=== PATIENT | male | born 1960 | race Caucasian/White ===

== ENCOUNTER 2021-05-24 09:24 | Emergency (ER) | payer OTHER ==
[~2021-05-24] VITALS: Ht 182.9 cm; Wt 95.3 kg
[2021-05-24] MEDS ORDERED: AMLODIPINE BESYL5 MG PO (23:41)
[2021-05-24] MEDS ORDERED: FINASTERIDE5 MG PO (23:41)
[2021-05-24] MEDS ORDERED: SIMVASTATIN20 MG PO (23:41)
[2021-05-24] MEDS ORDERED: FLOMAX0.4 MG PO (23:41)
== END 2021-05-24 12:31 | disposition home or self-care (01) ==
LOC: ER 09:30
DX: R31.9 Hematuria, unspecified (principal); Z98.890 Other specified postprocedural states; I10 Essential (primary) hypertension
CPT/HCPCS: 99282

== ENCOUNTER 2021-05-24 17:00 | Inpatient (IN) | payer OTHER ==
[~2021-05-24] VITALS: Ht 182.9 cm; Wt 95.3 kg
[2021-05-24] MEDS: SODIUM CHLORIDE 0.9% 1000ML 1,000 ML IV SCH (18:14)
[2021-05-24] MEDS: CEFTRIAXONE 1 GM in SODIUM CHLORIDE 0.9% 50ML 50 ML IV SCH (18:14)
[2021-05-24 18:15] LABS: BASOPHILS % 0.2 % (0.0-1.0); EOSINOPHILS # (AUTO) 0.2 (0.0-0.4); EOSINOPHILS % 1.7 % (0.0-6.0); HEMATOCRIT 37.7 % (38.2-49.6); HEMOGLOBIN 12.7 g/dL (14.0-18.0); LYMPHOCYTES # (AUTO) 1.2 (1.0-3.2); LYMPHOCYTES % 13.1 % (18.0-39.1); MEAN CORPUSCULAR HEMOGLOBIN 28.5 pg (28-32); MEAN CORPUSCULAR HGB CONC 33.7 g/dL (31-35); MEAN CORPUSCULAR VOLUME 84.7 fL (81-99); MONOCYTES # (AUTO) 0.8 (0.2-0.8); NEUTROPHILS # (AUTO) 6.7 (2.1-6.9); NEUTROPHILS % 75.4 % (38.7-80.0); PLATELET COUNT 242 x10e3/uL (140-360); RED BLOOD COUNT 4.45 x10e6/uL (4.3-5.7); RED CELL DISTRIBUTION WIDTH 13.2 % (11.7-14.4)
[2021-05-24] MEDS ORDERED: LIDOCAINE JELLY 2% 10ML URO-JET ONE (18:28)
[2021-05-24 18:29] LABS: ANION GAP 14.7 mmol/L (8-16); CALCIUM 8.7 mg/dL (8.4-10.2); CREATININE, SERUM 0.83 mg/dL (0.72-1.25); POTASSIUM 3.7 mmol/L (3.5-5.1)
[2021-05-24] MEDS ORDERED: LIDOCAINE JELLY 2% 10ML URO-JET TOP ONE (18:30)
[2021-05-24 20:00] VITALS: BP 136/80
[2021-05-24 23:26] VITALS: BP 136/80
[2021-05-24 23:31] VITALS: BP 136/76
[2021-05-24] MEDS ORDERED: AMLODIPINE BESYL5 MG PO (23:41)
[2021-05-24] MEDS ORDERED: FLOMAX0.4 MG PO (23:41)
[2021-05-24] MEDS ORDERED: FINASTERIDE5 MG PO (23:41)
[2021-05-24] MEDS ORDERED: SIMVASTATIN20 MG PO (23:41)
[2021-05-25] VITALS (8 sets, daily range): BP systolic 117–162; BP diastolic 71–89
[2021-05-25] MEDS: SODIUM CHLORIDE 0.9% 1000ML 1,000 ML IV SCH (02:31)
[2021-05-25] MEDS: MORPHINE SULFATE INJ 4 MG/ML INJ 1ML IV PRN ×3 (04:08→23:00)
[2021-05-25 04:58] LABS: BASOPHILS % 0.1 % (0.0-1.0); EOSINOPHILS # (AUTO) 0.2 (0.0-0.4); EOSINOPHILS % 2.9 % (0.0-6.0); HEMATOCRIT 34.6 % (38.2-49.6); HEMOGLOBIN 11.8 g/dL (14.0-18.0); LYMPHOCYTES # (AUTO) 1.2 (1.0-3.2); LYMPHOCYTES % 15.4 % (18.0-39.1); MEAN CORPUSCULAR HEMOGLOBIN 28.8 pg (28-32); MEAN CORPUSCULAR HGB CONC 34.1 g/dL (31-35); MEAN CORPUSCULAR VOLUME 84.4 fL (81-99); MONOCYTES # (AUTO) 0.8 (0.2-0.8); MONOCYTES % 10.4 % (4.4-11.3); NEUTROPHILS # (AUTO) 5.4 (2.1-6.9); NEUTROPHILS % 70.7 % (38.7-80.0); PLATELET COUNT 229 x10e3/uL (140-360); RED CELL DISTRIBUTION WIDTH 13.4 % (11.7-14.4)
[2021-05-25 05:53] LABS: ANION GAP 11.5 mmol/L (8-16); CALCIUM 8.1 mg/dL (8.4-10.2); CREATININE, SERUM 0.73 mg/dL (0.72-1.25); POTASSIUM 3.5 mmol/L (3.5-5.1)
[2021-05-25] MEDS ORDERED: KCL 20MEQ/.9 SOD CHL 1,000 ML IV SCH (10:00)
[2021-05-25] MEDS: ONDANSETRON HCL INJ 2MG/ML 2ML 2 MG/ML VIAL IV PRN ×2 (10:06→23:00)
[2021-05-25] MEDS: KCL 20MEQ/.9 SOD CHL 1,000 ML IV SCH ×2 (10:34→18:33)
[2021-05-25] MEDS ORDERED: ACETAMINOPHEN 325 MG TAB PO PRN (15:00)
[2021-05-25] MEDS ORDERED: HYDRALAZINE HCL 20 MG/ML VIAL IV PRN (15:00)
[2021-05-25] MEDS ORDERED: POLYETHYLENE GLYCOL 3350 17 GM PACK PO PRN (15:00)
[2021-05-25] MEDS: FAMOTIDINE 20 MG TAB PO SCH (16:01)
[2021-05-25] MEDS: TAMSULOSIN HCL 0.4 MG CAP PO SCH (16:01)
[2021-05-25] MEDS: DOCUSATE SODIUM 100 MG CAP PO SCH (16:01)
[2021-05-25] MEDS: TIZANIDINE HCL 4 MG TAB PO SCH (16:01)
[2021-05-25] MEDS: LIDOCAINE 4% PATCH TP SCH (16:23)
[2021-05-25] MEDS: CEFTRIAXONE 1 GM in SODIUM CHLORIDE 0.9% 50ML 50 ML IV SCH (17:48)
[2021-05-25] MEDS ORDERED: SODIUM CHLORIDE 0.9% 1000ML 1,000 ML ONE (20:12)
[2021-05-25] MEDS ORDERED: TEMAZEPAM 15 MG CAP PO PRN (21:00)
[2021-05-26] VITALS (8 sets, daily range): BP systolic 109–161; BP diastolic 63–99
[2021-05-26] MEDS: SODIUM CHLORIDE 0.9% 1000ML 1,000 ML IV SCH ×3 (02:38→19:24)
[2021-05-26] MEDS: MORPHINE SULFATE INJ 4 MG/ML INJ 1ML IV PRN ×4 (03:11→23:30)
[2021-05-26] MEDS: ONDANSETRON HCL INJ 2MG/ML 2ML 2 MG/ML VIAL IV PRN ×4 (03:11→23:30)
[2021-05-26 05:31] LABS: BASOPHILS % 0.2 % (0.0-1.0); EOSINOPHILS # (AUTO) 0.1 (0.0-0.4); EOSINOPHILS % 1.1 % (0.0-6.0); HEMATOCRIT 37.8 % (38.2-49.6); HEMOGLOBIN 12.5 g/dL (14.0-18.0); LYMPHOCYTES # (AUTO) 1.1 (1.0-3.2); LYMPHOCYTES % 9.6 % (18.0-39.1); MEAN CORPUSCULAR HEMOGLOBIN 28.3 pg (28-32); MEAN CORPUSCULAR HGB CONC 33.1 g/dL (31-35); MEAN CORPUSCULAR VOLUME 85.5 fL (81-99); MONOCYTES # (AUTO) 1.1 (0.2-0.8); NEUTROPHILS # (AUTO) 9.3 (2.1-6.9); NEUTROPHILS % 79.5 % (38.7-80.0); PLATELET COUNT 227 x10e3/uL (140-360); RED BLOOD COUNT 4.42 x10e6/uL (4.3-5.7); RED CELL DISTRIBUTION WIDTH 13.1 % (11.7-14.4)
[2021-05-26 06:01] LABS: PARTIAL THROMBOPLASTIN TIME 26.4 seconds (23.8-35.5)
[2021-05-26 06:05] LABS: ALBUMIN 3.3 g/dL (3.5-5.0); ANION GAP 14.6 mmol/L (8-16); CHOL/HDL RATIO 2.6 (3.9-4.7); CREATININE, SERUM 0.74 mg/dL (0.72-1.25); MAGNESIUM 1.8 MG/DL (1.3-2.1); PHOSPHORUS 2.3 MG/DL (2.3-4.7); POTASSIUM 3.6 mmol/L (3.5-5.1)
[2021-05-26 06:26] LABS: INR 0.91; PROTHROMBIN TIME 12.4 seconds (11.9-14.5)
[2021-05-26 06:28] LABS: THYROID STIMULATING HORMONE 1.4 uIU/mL (0.350-4.940)
[2021-05-26] MEDS: FAMOTIDINE 20 MG TAB PO SCH ×2 (09:38→17:15)
[2021-05-26] MEDS: DOCUSATE SODIUM 100 MG CAP PO SCH ×2 (09:39→17:15)
[2021-05-26] MEDS: TAMSULOSIN HCL 0.4 MG CAP PO SCH ×2 (09:39→17:15)
[2021-05-26] MEDS: LIDOCAINE 4% PATCH TP SCH (09:40)
[2021-05-26] MEDS: TIZANIDINE HCL 4 MG TAB PO SCH ×2 (09:40→17:15)
[2021-05-26] MEDS: AMLODIPINE BESYLATE 5 MG TAB PO SCH (12:59)
[2021-05-26] MEDS: FINASTERIDE 5 MG TAB PO SCH (12:59)
[2021-05-26] MEDS: CEFTRIAXONE 1 GM in SODIUM CHLORIDE 0.9% 50ML 50 ML IV SCH (17:15)
[2021-05-26] MEDS: SIMVASTATIN 20 MG TAB PO SCH (21:50)
[2021-05-27] VITALS (8 sets, daily range): BP systolic 107–141; BP diastolic 67–83
[2021-05-27] MEDS: SODIUM CHLORIDE 0.9% 1000ML 1,000 ML IV SCH ×3 (02:54→22:20)
[2021-05-27] MEDS: MORPHINE SULFATE INJ 4 MG/ML INJ 1ML IV PRN ×2 (04:25→15:30)
[2021-05-27] MEDS: ONDANSETRON HCL INJ 2MG/ML 2ML 2 MG/ML VIAL IV PRN ×2 (04:25→15:30)
[2021-05-27 05:46] LABS: BASOPHILS % 0.2 % (0.0-1.0); EOSINOPHILS # (AUTO) 0.3 (0.0-0.4); EOSINOPHILS % 2.6 % (0.0-6.0); HEMATOCRIT 33.4 % (38.2-49.6); HEMOGLOBIN 11.1 g/dL (14.0-18.0); LYMPHOCYTES # (AUTO) 1.5 (1.0-3.2); LYMPHOCYTES % 14.7 % (18.0-39.1); MEAN CORPUSCULAR HEMOGLOBIN 28.6 pg (28-32); MEAN CORPUSCULAR HGB CONC 33.2 g/dL (31-35); MEAN CORPUSCULAR VOLUME 86.1 fL (81-99); MONOCYTES % 9.9 % (4.4-11.3); NEUTROPHILS # (AUTO) 7.3 (2.1-6.9); NEUTROPHILS % 71.9 % (38.7-80.0); PLATELET COUNT 199 x10e3/uL (140-360); RED BLOOD COUNT 3.88 x10e6/uL (4.3-5.7); RED CELL DISTRIBUTION WIDTH 13.3 % (11.7-14.4)
[2021-05-27 06:07] LABS: ANION GAP 11.6 mmol/L (8-16); CALCIUM 7.8 mg/dL (8.4-10.2); CREATININE, SERUM 0.7 mg/dL (0.72-1.25); POTASSIUM 3.6 mmol/L (3.5-5.1)
[2021-05-27] MEDS: DOCUSATE SODIUM 100 MG CAP PO SCH ×2 (07:37→17:12)
[2021-05-27] MEDS: FAMOTIDINE 20 MG TAB PO SCH ×2 (07:37→17:12)
[2021-05-27] MEDS: TAMSULOSIN HCL 0.4 MG CAP PO SCH ×2 (07:37→17:12)
[2021-05-27] MEDS: LIDOCAINE 4% PATCH TP SCH (07:38)
[2021-05-27] MEDS: TIZANIDINE HCL 4 MG TAB PO SCH ×2 (07:38→17:13)
[2021-05-27] MEDS: AMLODIPINE BESYLATE 5 MG TAB PO SCH (12:15)
[2021-05-27] MEDS: FINASTERIDE 5 MG TAB PO SCH (12:15)
[2021-05-27] MEDS ORDERED: CALCIUM GLUCONATE 10% INJ 9.3 MEQ in SODIUM CHLORIDE 0.9% 100 ML 100 ML IV ONE (15:00)
[2021-05-27] MEDS: CEFTRIAXONE 1 GM in SODIUM CHLORIDE 0.9% 50ML 50 ML IV SCH (18:02)
[2021-05-27] MEDS: SIMVASTATIN 20 MG TAB PO SCH (20:23)
[2021-05-27] MEDS: HYDROCODONE/APAP 7.5MG-325MG 1 EA TAB PO PRN (23:25)
[2021-05-28] VITALS (8 sets, daily range): BP systolic 126–151; BP diastolic 82–89
[2021-05-28] MEDS: SODIUM CHLORIDE 0.9% 1000ML 1,000 ML IV SCH ×3 (01:19→18:30)
[2021-05-28] MEDS: HYDROCODONE/APAP 7.5MG-325MG 1 EA TAB PO PRN (03:45)
[2021-05-28 06:01] LABS: BASOPHILS % 0.2 % (0.0-1.0); EOSINOPHILS # (AUTO) 0.4 (0.0-0.4); EOSINOPHILS % 3.9 % (0.0-6.0); HEMATOCRIT 32.7 % (38.2-49.6); HEMOGLOBIN 10.9 g/dL (14.0-18.0); LYMPHOCYTES # (AUTO) 1.5 (1.0-3.2); MEAN CORPUSCULAR HEMOGLOBIN 28.3 pg (28-32); MEAN CORPUSCULAR HGB CONC 33.3 g/dL (31-35); MEAN CORPUSCULAR VOLUME 84.9 fL (81-99); MONOCYTES # (AUTO) 0.8 (0.2-0.8); NEUTROPHILS # (AUTO) 6.4 (2.1-6.9); NEUTROPHILS % 70.2 % (38.7-80.0); PLATELET COUNT 215 x10e3/uL (140-360); RED BLOOD COUNT 3.85 x10e6/uL (4.3-5.7); RED CELL DISTRIBUTION WIDTH 13.2 % (11.7-14.4)
[2021-05-28 06:32] LABS: ANION GAP 11.5 mmol/L (8-16); CALCIUM 8.3 mg/dL (8.4-10.2); CREATININE, SERUM 0.72 mg/dL (0.72-1.25); POTASSIUM 3.5 mmol/L (3.5-5.1)
[2021-05-28] MEDS: FAMOTIDINE 20 MG TAB PO SCH ×2 (07:53→16:40)
[2021-05-28] MEDS: TAMSULOSIN HCL 0.4 MG CAP PO SCH ×2 (08:17→16:40)
[2021-05-28] MEDS: DOCUSATE SODIUM 100 MG CAP PO SCH ×2 (08:17→16:40)
[2021-05-28] MEDS: TIZANIDINE HCL 4 MG TAB PO SCH ×2 (08:18→16:40)
[2021-05-28] MEDS: LIDOCAINE 4% PATCH TP SCH (08:18)
[2021-05-28] MEDS: AMLODIPINE BESYLATE 5 MG TAB PO SCH (11:12)
[2021-05-28] MEDS: FINASTERIDE 5 MG TAB PO SCH (11:12)
[2021-05-28] MEDS: CEFTRIAXONE 1 GM in SODIUM CHLORIDE 0.9% 50ML 50 ML IV SCH (18:06)
[2021-05-28] MEDS: SIMVASTATIN 20 MG TAB PO SCH (21:33)
[2021-05-29 00:41] VITALS: BP 134/87
[2021-05-29] MEDS: SODIUM CHLORIDE 0.9% 1000ML 1,000 ML IV SCH ×2 (02:30→10:30)
[2021-05-29 04:00] VITALS: BP 144/92
[2021-05-29 05:02] LABS: BASOPHILS % 0.3 % (0.0-1.0); EOSINOPHILS # (AUTO) 0.4 (0.0-0.4); EOSINOPHILS % 4.2 % (0.0-6.0); LYMPHOCYTES # (AUTO) 1.6 (1.0-3.2); LYMPHOCYTES % 18.3 % (18.0-39.1); MEAN CORPUSCULAR HEMOGLOBIN 28.5 pg (28-32); MEAN CORPUSCULAR HGB CONC 34.3 g/dL (31-35); MEAN CORPUSCULAR VOLUME 83.1 fL (81-99); MONOCYTES # (AUTO) 0.8 (0.2-0.8); MONOCYTES % 9.3 % (4.4-11.3); NEUTROPHILS # (AUTO) 5.9 (2.1-6.9); NEUTROPHILS % 67.2 % (38.7-80.0); PLATELET COUNT 275 x10e3/uL (140-360); RED BLOOD COUNT 4.21 x10e6/uL (4.3-5.7); RED CELL DISTRIBUTION WIDTH 13.2 % (11.7-14.4)
[2021-05-29 05:26] LABS: ANION GAP 15.3 mmol/L (8-16); CALCIUM 8.6 mg/dL (8.4-10.2); CREATININE, SERUM 0.75 mg/dL (0.72-1.25); MAGNESIUM 1.8 MG/DL (1.3-2.1); POTASSIUM 3.3 mmol/L (3.5-5.1)
[2021-05-29] MEDS: FAMOTIDINE 20 MG TAB PO SCH (07:30)
[2021-05-29 07:59] VITALS: BP 139/91
[2021-05-29] MEDS: TIZANIDINE HCL 4 MG TAB PO SCH (09:00)
[2021-05-29] MEDS: LIDOCAINE 4% PATCH TP SCH (09:00)
[2021-05-29] MEDS: DOCUSATE SODIUM 100 MG CAP PO SCH (09:00)
[2021-05-29] MEDS: TAMSULOSIN HCL 0.4 MG CAP PO SCH (09:00)
[2021-05-29 09:25] VITALS: BP 139/91
[2021-05-29] MEDS: FINASTERIDE 5 MG TAB PO SCH (12:00)
[2021-05-29] MEDS: AMLODIPINE BESYLATE 5 MG TAB PO SCH (12:00)
[2021-05-29] MEDS ORDERED: ONDANSETRON HCL 4 MG ORAL DISINTEGRATING TAB PO PRN (12:00)
[2021-05-29 12:21] VITALS: BP 114/78
== END 2021-05-29 14:15 | disposition home or self-care (01) | DRG 699 ==
LOC: ER 17:35 → ERHOLD 17:53 → MED/SURG 20:13
PROVIDERS: ADMIT Internal Medicine; ATTEND Internal Medicine
DX: N32.89 Other specified disorders of bladder (principal); D62 Acute posthemorrhagic anemia; R31.0 Gross hematuria; N40.1 Benign prostatic hyperplasia with lower urinary tract symptoms; N13.8 Other obstructive and reflux uropathy; E66.9 Obesity, unspecified; Z68.28 Body mass index [BMI] 28.0-28.9, adult; E83.51 Hypocalcemia; I10 Essential (primary) hypertension; M54.5 Low back pain; E78.5 Hyperlipidemia, unspecified; Z20.822 Contact with and (suspected) exposure to COVID-19; Z98.890 Other specified postprocedural states; E87.6 Hypokalemia
CPT/HCPCS: 36415; 51703; 80048; 80053; 80061; 83036; 83735; 84100; 84443; 85025; 85610; 85730; 87086; 97139; 99284; J0610; J0696; J2270; J2405; J7030; U0002

== ENCOUNTER 2024-05-21 16:03 | Inpatient (IN) | payer BC ==
[~2024-05-21] VITALS: Ht 182.9 cm; Wt 94.0 kg
[2024-05-21 00:58] VITALS: PULSE 86; RESP 18; O2SAT 99
[~2024-05-21 16:03] MED LIST: AMLODIPINE BESYL5 MG PO; FINASTERIDE5 MG PO; FLOMAX0.4 MG PO; SIMVASTATIN20 MG PO
[2024-05-21 17:41] LABS: BASOPHILS % 0.3 % (0.0-1.0); EOSINOPHILS # (AUTO) 0.2 (0.0-0.4); EOSINOPHILS % 2.3 % (0.0-6.0); HEMATOCRIT 40.9 % (38.2-49.6); LYMPHOCYTES # (AUTO) 1.8 (1.0-3.2); LYMPHOCYTES % 18.3 % (18.0-39.1); MEAN CORPUSCULAR HEMOGLOBIN 28.7 pg (28-32); MEAN CORPUSCULAR HGB CONC 34.2 g/dL (31-35); MONOCYTES # (AUTO) 0.9 (0.2-0.8); MONOCYTES % 9.1 % (4.4-11.3); NEUTROPHILS # (AUTO) 6.7 (2.1-6.9); NEUTROPHILS % 67.8 % (38.7-80.0); PLATELET COUNT 165 x10e3/uL (140-360); RED BLOOD COUNT 4.87 x10e6/uL (4.3-5.7); RED CELL DISTRIBUTION WIDTH 13.3 % (11.7-14.4); WHITE BLOOD COUNT 9.94 x10e3/uL (4.8-10.8)
[2024-05-21 17:54] LABS: INR 0.9; PROTHROMBIN TIME 12.8 seconds (11.9-14.5)
[2024-05-21 17:57] LABS: ALBUMIN 3.2 g/dL (3.5-5.0); ALBUMIN/GLOBULIN RATIO 0.9 (0.8-2.0); ANION GAP 14.5 mmol/L (8-16); BILIRUBIN,TOTAL 0.7 mg/dL (0.2-1.2); CALCIUM 8.8 mg/dL (8.4-10.2); CREATININE, SERUM 1.17 mg/dL (0.72-1.25); POTASSIUM 3.5 mmol/L (3.5-5.1); TOTAL PROTEIN 6.7 g/dL (6.5-8.1)
[2024-05-21 17:57] LABS: CLARITY,URINE SL CLOUDY (CLEAR); COLOR,URINE YELLOW (YELLOW); PH,URINE 5.5 (5 - 7)
[2024-05-21 17:58] LABS: BILIRUBIN,URINE NEGATIVE (NEGATIVE); GLUCOSE, URINE NEGATIVE (NEGATIVE); KETONES,URINE NEGATIVE (NEGATIVE); LEUKOCYTE ESTERASE ,URINE TRACE (NEGATIVE); NITRITE,URINE POSITIVE (NEGATIVE); PROTEIN,URINE DIPSTICK 1+ (NEGATIVE); URINE UROBILINOGEN 0.2 mg/dL (0.2 - 1)
[2024-05-21] MEDS: ACETAMINOPHEN 325 MG TAB PO ONE (18:01)
[2024-05-21] MEDS: SODIUM CHLORIDE 0.9% 1000ML 1,000 ML IV SCH ×2 (18:01→21:38)
[2024-05-21 18:08] LABS: BACTERIA,URINE MANY /HPF; RBC,URINE 0-5 /HPF (0-5)
[2024-05-21 19:20] LABS: EOSINOPHILS % (MANUAL) 3 % (0-7); LYMPHOCYTES % (MANUAL) 16 % (19-48); MONOCYTES % (MANUAL) 6 % (3.4-9.0); NEUTROPHILS % (MANUAL) 71 % (40-74); PLATELET ESTIMATE ADEQUATE; PLATELET MORPHOLOGY COMMENT NORMAL; RBC MORPHOLOGY COMMENT NORMAL; REACTIVE LYMPHOCYTES 4
[2024-05-21] MEDS ORDERED: ONDANSETRON HCL INJ 2MG/ML 2ML 2 MG/ML VIAL IV PRN (20:30)
[2024-05-21 20:46] VITALS: PULSE 85; RESP 15; TEMP 98.7
[2024-05-21 21:20] VITALS: BP 127/82; PULSE 86; RESP 21; TEMP 98.6; O2SAT 99
[2024-05-21] MEDS ORDERED: ACETAMINOPHEN 325 MG TAB PO PRN (22:00)
[2024-05-21] MEDS: TAMSULOSIN HCL 0.4 MG CAP PO SCH (22:13)
[2024-05-21 22:35] VITALS: BP 127/82; PULSE 86; RESP 21; TEMP 98.6; O2SAT 99
[2024-05-21 22:36] VITALS: BP 127/82; PULSE 86; RESP 21; TEMP 98.6; O2SAT 99
[2024-05-22] VITALS (7 sets, daily range): BP systolic 127–174; BP diastolic 69–99; PULSE 87–96; RESP 18–20; TEMP 97.9–98.7; O2SAT 96–100
[2024-05-22 06:04] LABS: BASOPHILS % 0.2 % (0.0-1.0); EOSINOPHILS # (AUTO) 0.2 (0.0-0.4); EOSINOPHILS % 2.7 % (0.0-6.0); HEMATOCRIT 35.9 % (38.2-49.6); HEMOGLOBIN 11.9 g/dL (14.0-18.0); LYMPHOCYTES # (AUTO) 2.2 (1.0-3.2); LYMPHOCYTES % 24.8 % (18.0-39.1); MEAN CORPUSCULAR HEMOGLOBIN 28.9 pg (28-32); MEAN CORPUSCULAR HGB CONC 33.1 g/dL (31-35); MEAN CORPUSCULAR VOLUME 87.1 fL (81-99); MONOCYTES # (AUTO) 0.6 (0.2-0.8); MONOCYTES % 6.8 % (4.4-11.3); NEUTROPHILS # (AUTO) 5.5 (2.1-6.9); NEUTROPHILS % 62.9 % (38.7-80.0); PLATELET COUNT 155 x10e3/uL (140-360); RED BLOOD COUNT 4.12 x10e6/uL (4.3-5.7); RED CELL DISTRIBUTION WIDTH 13.3 % (11.7-14.4); WHITE BLOOD COUNT 8.74 x10e3/uL (4.8-10.8)
[2024-05-22 06:38] LABS: ALBUMIN 2.5 g/dL (3.5-5.0); ALBUMIN/GLOBULIN RATIO 0.7 (0.8-2.0); ANION GAP 11.3 mmol/L (8-16); BILIRUBIN,TOTAL 0.6 mg/dL (0.2-1.2); CALCIUM 7.9 mg/dL (8.4-10.2); CREATININE, SERUM 1.05 mg/dL (0.72-1.25); TOTAL PROTEIN 5.9 g/dL (6.5-8.1)
[2024-05-22 06:44] LABS: POTASSIUM 3.3 mmol/L (3.5-5.1)
[2024-05-22 08:45] LABS: BASOPHILS % (MANUAL) 1 % (0-1.5); LYMPHOCYTES % (MANUAL) 14 % (19-48); MONOCYTES % (MANUAL) 3 % (3.4-9.0); MYELOCYTES % (MANUAL) 1 % (0-0); NEUTROPHILS % (MANUAL) 75 % (40-74); PLATELET ESTIMATE ADEQUATE; PLATELET MORPHOLOGY COMMENT NORMAL; RBC MORPHOLOGY COMMENT NORMAL; REACTIVE LYMPHOCYTES 6
[2024-05-22] MEDS: SIMVASTATIN 20 MG TAB PO SCH (12:42)
[2024-05-22] MEDS: FINASTERIDE 5 MG TAB PO SCH (12:42)
[2024-05-22] MEDS: AMLODIPINE BESYLATE 5 MG TAB PO SCH (12:48)
[2024-05-22] MEDS: ACETAMINOPHEN 325 MG TAB PO PRN (18:03)
[2024-05-22] MEDS: HYDROCODONE/APAP 7.5MG-325MG 1 EA TAB PO PRN (21:25)
[2024-05-23] VITALS: BP 122/77; PULSE 82; RESP 20; TEMP 98.3; O2SAT 98
[2024-05-23 04:00] VITALS: BP 142/83; PULSE 88; RESP 20; TEMP 98.4; O2SAT 98
[2024-05-23 05:49] LABS: BASOPHILS % 0.4 % (0.0-1.0); EOSINOPHILS # (AUTO) 0.2 (0.0-0.4); EOSINOPHILS % 2.6 % (0.0-6.0); HEMATOCRIT 37.4 % (38.2-49.6); HEMOGLOBIN 12.3 g/dL (14.0-18.0); LYMPHOCYTES # (AUTO) 1.9 (1.0-3.2); MEAN CORPUSCULAR HEMOGLOBIN 28.3 pg (28-32); MEAN CORPUSCULAR HGB CONC 32.9 g/dL (31-35); MEAN CORPUSCULAR VOLUME 86.2 fL (81-99); MONOCYTES # (AUTO) 0.5 (0.2-0.8); MONOCYTES % 6.2 % (4.4-11.3); NEUTROPHILS # (AUTO) 4.9 (2.1-6.9); NEUTROPHILS % 63.2 % (38.7-80.0); PLATELET COUNT 200 x10e3/uL (140-360); RED BLOOD COUNT 4.34 x10e6/uL (4.3-5.7); RED CELL DISTRIBUTION WIDTH 13.2 % (11.7-14.4); WHITE BLOOD COUNT 7.78 x10e3/uL (4.8-10.8)
[2024-05-23 06:17] LABS: ANION GAP 10.4 mmol/L (8-16); CREATININE, SERUM 0.79 mg/dL (0.72-1.25)
[2024-05-23 06:24] LABS: POTASSIUM 3.4 mmol/L (3.5-5.1)
[2024-05-23 08:00] VITALS: BP 142/83; PULSE 88; RESP 20; TEMP 98.4; O2SAT 98
[2024-05-23 08:44] VITALS: BP 156/98; PULSE 90; RESP 20; TEMP 98.8; O2SAT 100
[2024-05-23 12:01] LABS: EOSINOPHILS % (MANUAL) 4 % (0-7); LYMPHOCYTES % (MANUAL) 23 % (19-48); MONOCYTES % (MANUAL) 8 % (3.4-9.0); NEUTROPHILS % (MANUAL) 65 % (40-74); PLATELET ESTIMATE ADEQUATE; PLATELET MORPHOLOGY COMMENT NORMAL; RBC MORPHOLOGY COMMENT NORMAL
[2024-05-23] MEDS: MEROPENEM 1 GM in SODIUM CHLORIDE 0.9% 100 ML IV SCH (16:35)
[2024-05-23 20:00] VITALS: BP 141/99; PULSE 94; RESP 18; TEMP 98.2; O2SAT 97
[2024-05-24] VITALS (8 sets, daily range): BP systolic 131–151; BP diastolic 83–99; PULSE 83–94; RESP 18–20; TEMP 97.7–98.6; O2SAT 95–100
[2024-05-25] VITALS: BP 150/92; PULSE 88; RESP 18; TEMP 97.7; O2SAT 95
[2024-05-25 05:00] VITALS: BP 136/71; PULSE 88; RESP 18; TEMP 97; O2SAT 95
[2024-05-25 08:45] VITALS: BP 136/71; PULSE 88; RESP 18; TEMP 97; O2SAT 95
[2024-05-25] MEDS: ONDANSETRON HCL 4 MG ORAL DISINTEGRATING TAB PO PRN (12:51)
[2024-05-25 15:51] VITALS: BP 158/84; PULSE 91; RESP 18; TEMP 97.2; O2SAT 100
[2024-05-25 20:00] VITALS: BP 141/84; PULSE 92; RESP 18; TEMP 98.2; O2SAT 97
[2024-05-26] VITALS (7 sets, daily range): BP systolic 122–150; BP diastolic 71–92; PULSE 81–92; RESP 18–20; TEMP 97.3–98.6; O2SAT 97–100
[2024-05-26 06:04] LABS: BASOPHILS # (AUTO) 0.1 (0.0-0.1); BASOPHILS % 0.6 % (0.0-1.0); EOSINOPHILS # (AUTO) 0.2 (0.0-0.4); EOSINOPHILS % 1.9 % (0.0-6.0); HEMATOCRIT 40.8 % (38.2-49.6); HEMOGLOBIN 13.8 g/dL (14.0-18.0); LYMPHOCYTES # (AUTO) 1.7 (1.0-3.2); LYMPHOCYTES % 17.9 % (18.0-39.1); MEAN CORPUSCULAR HEMOGLOBIN 28.6 pg (28-32); MEAN CORPUSCULAR HGB CONC 33.8 g/dL (31-35); MEAN CORPUSCULAR VOLUME 84.6 fL (81-99); MONOCYTES # (AUTO) 0.8 (0.2-0.8); MONOCYTES % 8.1 % (4.4-11.3); NEUTROPHILS # (AUTO) 6.4 (2.1-6.9); NEUTROPHILS % 68.5 % (38.7-80.0); PLATELET COUNT 324 x10e3/uL (140-360); RED BLOOD COUNT 4.82 x10e6/uL (4.3-5.7); RED CELL DISTRIBUTION WIDTH 12.8 % (11.7-14.4); WHITE BLOOD COUNT 9.31 x10e3/uL (4.8-10.8)
[2024-05-26 06:35] LABS: ANION GAP 12.5 mmol/L (8-16); CALCIUM 9.1 mg/dL (8.4-10.2); CREATININE, SERUM 0.79 mg/dL (0.72-1.25); POTASSIUM 3.5 mmol/L (3.5-5.1)
[2024-05-27] VITALS: BP 130/89; PULSE 84; RESP 18; TEMP 97.6; O2SAT 97
[2024-05-27 04:00] VITALS: BP 119/76; PULSE 80; RESP 18; TEMP 98.1; O2SAT 99
[2024-05-27 05:22] VITALS: BP 130/89; PULSE 84; RESP 18; TEMP 97.6; O2SAT 97
[2024-05-27 08:44] VITALS: BP 130/89; PULSE 84; RESP 18; TEMP 97.6; O2SAT 97
[2024-05-27 12:19] VITALS: BP 124/73; PULSE 84; RESP 18; TEMP 97.8; O2SAT 97
== END 2024-05-27 13:00 | disposition home health service (06) | DRG 690 ==
LOC: ER 18:12 → ERHOLD 20:21 → MED/SURG2 21:06
PROVIDERS: ADMIT Internal Medicine; ATTEND Internal Medicine
PROC: 0T9B70Z Drainage of Bladder with Drainage Device, Via Natural or Artificial Opening (ICD-10-PCS; 2024-05-22)
PROC: 02HV33Z Insertion of Infusion Device into Superior Vena Cava, Percutaneous Approach (ICD-10-PCS; principal; 2024-05-23)
DX: N39.0 Urinary tract infection, site not specified (principal); Z16.12 Extended spectrum beta lactamase (ESBL) resistance; N20.0 Calculus of kidney; K29.80 Duodenitis without bleeding; I10 Essential (primary) hypertension; N40.1 Benign prostatic hyperplasia with lower urinary tract symptoms; R30.0 Dysuria; R33.8 Other retention of urine; E78.5 Hyperlipidemia, unspecified; B96.1 Klebsiella pneumoniae [K. pneumoniae] as the cause of diseases classified elsewhere; R91.1 Solitary pulmonary nodule; Z11.52 Encounter for screening for COVID-19; R31.9 Hematuria, unspecified; T36.8X5A Adverse effect of other systemic antibiotics, initial encounter; L27.0 Generalized skin eruption due to drugs and medicaments taken internally; E66.01 Morbid (severe) obesity due to excess calories; Z68.28 Body mass index [BMI] 28.0-28.9, adult; Z87.440 Personal history of urinary (tract) infections; Z88.2 Allergy status to sulfonamides; Z88.1 Allergy status to other antibiotic agents
CPT/HCPCS: 36415; 36569; 71045; 74176; 80048; 80053; 81001; 83605; 85025; 85610; 85730; 87040; 87086; 87186; 87400; 93005; 94799; 99284; J2185; J2543; J7030; J7050; Q0162; U0002

== ENCOUNTER 2024-06-19 09:12 | Inpatient (IN) | payer BC ==
[2024-06-18 13:33] LABS: BASOPHILS % 0.3 % (0.0-1.0); EOSINOPHILS # (AUTO) 0.4 (0.0-0.4); EOSINOPHILS % 5.7 % (0.0-6.0); HEMATOCRIT 43.7 % (38.2-49.6); HEMOGLOBIN 14.4 g/dL (14.0-18.0); LYMPHOCYTES # (AUTO) 1.2 (1.0-3.2); LYMPHOCYTES % 19.1 % (18.0-39.1); MEAN CORPUSCULAR HEMOGLOBIN 28.7 pg (28-32); MEAN CORPUSCULAR VOLUME 87.1 fL (81-99); MONOCYTES # (AUTO) 0.6 (0.2-0.8); MONOCYTES % 8.7 % (4.4-11.3); NEUTROPHILS # (AUTO) 4.2 (2.1-6.9); NEUTROPHILS % 65.6 % (38.7-80.0); PLATELET COUNT 168 x10e3/uL (140-360); RED BLOOD COUNT 5.02 x10e6/uL (4.3-5.7); RED CELL DISTRIBUTION WIDTH 13.2 % (11.7-14.4); WHITE BLOOD COUNT 6.44 x10e3/uL (4.8-10.8)
[2024-06-18 13:50] LABS: ANION GAP 12.9 mmol/L (8-16); CALCIUM 9.1 mg/dL (8.4-10.2); CREATININE, SERUM 0.86 mg/dL (0.72-1.25); POTASSIUM 3.9 mmol/L (3.5-5.1)
[~2024-06-19] VITALS: Ht 182.9 cm; Wt 91.6 kg
[~2024-06-19 09:12] MED LIST changes: +IOPAMIDOL 610MG/1ML 300 MG/ML VIAL IV ONE; +ROSUVASTATIN CA10 MG PO
[2024-06-19] MEDS: PIPERACILLIN/TAZOBACTAM 3.375 GM VIAL ONE (09:43)
[2024-06-19] MEDS: GENTAMICIN 80MG/NS 100 ML 200 ML IV ONE (09:43)
[2024-06-19] MEDS: SODIUM CHLORIDE 0.9% 1000ML 1,000 ML ONE (09:43)
[2024-06-19] MEDS: PIPERACILLIN/TAZOBACTAM 3.375 GM VIAL IV ONE (10:19)
[2024-06-19] MEDS ORDERED: PROPOFOL IV EMULSION 10 MG/ML 20 ML VIAL ONE (11:26)
[2024-06-19] MEDS ORDERED: ONDANSETRON HCL INJ 2MG/ML 2ML 2 MG/ML VIAL ONE (11:26)
[2024-06-19] MEDS ORDERED: LIDOCAINE HCL 2% LOCAL INJ 5 ML SDV VIAL INJ ONE (11:26)
[2024-06-19] MEDS ORDERED: DEXAMETHASONE SOD PHOS INJ 4 MG/ML SDV ONE (11:26)
[2024-06-19] MEDS ORDERED: SEVOFLURANE INHAL SOLN 250 ML PEN BTL ONE (11:26)
[2024-06-19] MEDS ORDERED: FENTANYL CITRATE/PF 100MCG/2 ML INJ ONE (12:53)
[2024-06-19] MEDS ORDERED: MIDAZOLAM HCL 2 MG/2 ML VIAL ONE (12:53)
[2024-06-19] MEDS ORDERED: IOPAMIDOL 610MG/1ML 300 MG/ML VIAL IV ONE (14:07)
[2024-06-19] MEDS ORDERED: ONDANSETRON HCL INJ 2MG/ML 2ML 2 MG/ML VIAL IV PRN (16:45)
[2024-06-19] MEDS ORDERED: ACETAMINOPHEN 1000 MG/100 ML IV PRN (16:45)
[2024-06-19] MEDS ORDERED: PHENAZOPYRIDINE HCL 100 MG TAB PO PRN (16:45)
[2024-06-19 17:01] LABS: BASOPHILS % 0.3 % (0.0-1.0); EOSINOPHILS # (AUTO) 0.2 (0.0-0.4); EOSINOPHILS % 3.1 % (0.0-6.0); HEMATOCRIT 42.9 % (38.2-49.6); HEMOGLOBIN 14.2 g/dL (14.0-18.0); LYMPHOCYTES # (AUTO) 0.9 (1.0-3.2); LYMPHOCYTES % 11.7 % (18.0-39.1); MEAN CORPUSCULAR HEMOGLOBIN 28.6 pg (28-32); MEAN CORPUSCULAR HGB CONC 33.1 g/dL (31-35); MEAN CORPUSCULAR VOLUME 86.5 fL (81-99); MONOCYTES # (AUTO) 0.2 (0.2-0.8); MONOCYTES % 2.8 % (4.4-11.3); NEUTROPHILS # (AUTO) 6.1 (2.1-6.9); NEUTROPHILS % 81.7 % (38.7-80.0); PLATELET COUNT 157 x10e3/uL (140-360); RED BLOOD COUNT 4.96 x10e6/uL (4.3-5.7); RED CELL DISTRIBUTION WIDTH 13.2 % (11.7-14.4); WHITE BLOOD COUNT 7.42 x10e3/uL (4.8-10.8)
[2024-06-19 17:16] LABS: ANION GAP 11.8 mmol/L (8-16); CALCIUM 8.6 mg/dL (8.4-10.2); CREATININE, SERUM 0.91 mg/dL (0.72-1.25); POTASSIUM 3.8 mmol/L (3.5-5.1)
[2024-06-19 18:00] VITALS: BP 148/89; PULSE 65; PULSE 73; RESP 16; RESP 17; TEMP 97.4; TEMP 98; O2SAT 97
[2024-06-19 19:43] VITALS: BP 148/89; PULSE 73; RESP 16; TEMP 97.4; O2SAT 97
[2024-06-19 20:00] VITALS: BP 100/67; PULSE 74; RESP 20; TEMP 97.9; O2SAT 100
[2024-06-19 20:12] VITALS: PULSE 83; RESP 18; O2SAT 95
[2024-06-19] MEDS: MEROPENEM 1 GM in SODIUM CHLORIDE 0.9% 100 ML IV SCH (20:40)
[2024-06-19] MEDS: SODIUM CHLORIDE 0.9% 1000ML 1,000 ML IV SCH (20:41)
[2024-06-19] MEDS: ACETAMINOPHEN/CODEINE 300MG - 30MG TAB PO PRN (22:59)
[2024-06-20 04:00] VITALS: BP 118/86; PULSE 85; RESP 20; TEMP 97.7; O2SAT 98
[2024-06-20 05:59] LABS: BASOPHILS % 0.1 % (0.0-1.0); EOSINOPHILS % 0.1 % (0.0-6.0); HEMATOCRIT 34.5 % (38.2-49.6); HEMOGLOBIN 11.6 g/dL (14.0-18.0); LYMPHOCYTES # (AUTO) 1.1 (1.0-3.2); LYMPHOCYTES % 9.5 % (18.0-39.1); MEAN CORPUSCULAR HEMOGLOBIN 29.1 pg (28-32); MEAN CORPUSCULAR HGB CONC 33.6 g/dL (31-35); MEAN CORPUSCULAR VOLUME 86.7 fL (81-99); MONOCYTES # (AUTO) 0.7 (0.2-0.8); MONOCYTES % 5.9 % (4.4-11.3); NEUTROPHILS # (AUTO) 9.3 (2.1-6.9); NEUTROPHILS % 83.9 % (38.7-80.0); PLATELET COUNT 189 x10e3/uL (140-360); RED BLOOD COUNT 3.98 x10e6/uL (4.3-5.7); RED CELL DISTRIBUTION WIDTH 13.3 % (11.7-14.4); WHITE BLOOD COUNT 11.12 x10e3/uL (4.8-10.8)
[2024-06-20 08:05] LABS: ANION GAP 9.2 mmol/L (8-16); CALCIUM 8.5 mg/dL (8.4-10.2); CREATININE, SERUM 0.86 mg/dL (0.72-1.25)
[2024-06-20 08:14] VITALS: BP 145/83; PULSE 84; RESP 16; TEMP 97.4; O2SAT 100
[2024-06-20 08:45] VITALS: BP 145/83; PULSE 84; RESP 16; TEMP 97.4; O2SAT 100
[2024-06-20 08:50] VITALS: PULSE 104; RESP 18; O2SAT 96
[2024-06-20] MEDS ORDERED: HYDRALAZINE HCL 20 MG/ML VIAL IV PRN (10:00)
[2024-06-20] MEDS ORDERED: ONDANSETRON HCL INJ 2MG/ML 2ML 2 MG/ML VIAL IV PRN (10:00)
[2024-06-20] MEDS: FINASTERIDE 5 MG TAB PO SCH (12:05)
[2024-06-20] MEDS: AMLODIPINE BESYLATE 5 MG TAB PO SCH (12:07)
[2024-06-20 16:17] LABS: POTASSIUM 4.2 mmol/L (3.5-5.1)
[2024-06-20] MEDS: TAMSULOSIN HCL 0.4 MG CAP PO SCH (17:22)
[2024-06-20 20:00] VITALS: BP 139/76; PULSE 82; RESP 20; TEMP 97.8; O2SAT 100
[2024-06-20 21:35] VITALS: PULSE 81; RESP 18; O2SAT 96
[2024-06-21] VITALS (10 sets, daily range): BP systolic 127–150; BP diastolic 80–94; PULSE 75–94; RESP 17–20; TEMP 97.4–98; O2SAT 97–100
[2024-06-21 09:27] LABS: BASOPHILS % 0.4 % (0.0-1.0); EOSINOPHILS # (AUTO) 0.3 (0.0-0.4); EOSINOPHILS % 3.4 % (0.0-6.0); LYMPHOCYTES # (AUTO) 1.2 (1.0-3.2); LYMPHOCYTES % 15.8 % (18.0-39.1); MEAN CORPUSCULAR HGB CONC 33.3 g/dL (31-35); MONOCYTES # (AUTO) 0.5 (0.2-0.8); MONOCYTES % 6.7 % (4.4-11.3); NEUTROPHILS # (AUTO) 5.3 (2.1-6.9); NEUTROPHILS % 73.1 % (38.7-80.0); PLATELET COUNT 150 x10e3/uL (140-360); RED BLOOD COUNT 3.45 x10e6/uL (4.3-5.7); RED CELL DISTRIBUTION WIDTH 13.6 % (11.7-14.4); WHITE BLOOD COUNT 7.27 x10e3/uL (4.8-10.8)
[2024-06-21 09:37] LABS: ANION GAP 7.2 mmol/L (8-16); CALCIUM 7.9 mg/dL (8.4-10.2); CREATININE, SERUM 0.78 mg/dL (0.72-1.25)
[2024-06-21 09:38] LABS: POTASSIUM 3.2 mmol/L (3.5-5.1)
[2024-06-21] MEDS ORDERED: ONDANSETRON HCL 4 MG ORAL DISINTEGRATING TAB PO PRN (15:45)
[2024-06-21] MEDS: POTASSIUM CHLORIDE 10MEQ EA PO ONE (21:22)
[2024-06-21] MEDS: DIPHENHYDRAMINE HCL 25 MG CAP PO PRN (21:22)
[2024-06-22] VITALS (10 sets, daily range): BP systolic 120–148; BP diastolic 69–97; PULSE 62–94; RESP 18–20; TEMP 97.3–98; O2SAT 97–100
[2024-06-22 06:38] LABS: BASOPHILS % 0.3 % (0.0-1.0); EOSINOPHILS # (AUTO) 0.3 (0.0-0.4); EOSINOPHILS % 4.6 % (0.0-6.0); HEMATOCRIT 32.7 % (38.2-49.6); HEMOGLOBIN 10.7 g/dL (14.0-18.0); LYMPHOCYTES # (AUTO) 1.4 (1.0-3.2); LYMPHOCYTES % 21.3 % (18.0-39.1); MEAN CORPUSCULAR HEMOGLOBIN 28.7 pg (28-32); MEAN CORPUSCULAR HGB CONC 32.7 g/dL (31-35); MEAN CORPUSCULAR VOLUME 87.7 fL (81-99); MONOCYTES # (AUTO) 0.6 (0.2-0.8); MONOCYTES % 8.9 % (4.4-11.3); NEUTROPHILS # (AUTO) 4.2 (2.1-6.9); NEUTROPHILS % 63.5 % (38.7-80.0); PLATELET COUNT 169 x10e3/uL (140-360); RED BLOOD COUNT 3.73 x10e6/uL (4.3-5.7); RED CELL DISTRIBUTION WIDTH 13.3 % (11.7-14.4); WHITE BLOOD COUNT 6.53 x10e3/uL (4.8-10.8)
[2024-06-22 07:01] LABS: CALCIUM 8.7 mg/dL (8.4-10.2); CREATININE, SERUM 0.76 mg/dL (0.72-1.25)
[2024-06-22 07:22] LABS: ANION GAP 12.3 mmol/L (8-16); POTASSIUM 3.3 mmol/L (3.5-5.1)
[2024-06-23] VITALS (8 sets, daily range): BP systolic 137–146; BP diastolic 81–90; PULSE 78–93; RESP 18–20; TEMP 97.6–98; O2SAT 97–100
[2024-06-23 06:10] LABS: BASOPHILS % 0.3 % (0.0-1.0); EOSINOPHILS # (AUTO) 0.4 (0.0-0.4); EOSINOPHILS % 5.6 % (0.0-6.0); HEMATOCRIT 30.3 % (38.2-49.6); HEMOGLOBIN 10.2 g/dL (14.0-18.0); LYMPHOCYTES # (AUTO) 1.4 (1.0-3.2); LYMPHOCYTES % 20.9 % (18.0-39.1); MEAN CORPUSCULAR HEMOGLOBIN 28.9 pg (28-32); MEAN CORPUSCULAR HGB CONC 33.7 g/dL (31-35); MEAN CORPUSCULAR VOLUME 85.8 fL (81-99); MONOCYTES # (AUTO) 0.6 (0.2-0.8); MONOCYTES % 8.7 % (4.4-11.3); NEUTROPHILS # (AUTO) 4.3 (2.1-6.9); NEUTROPHILS % 63.6 % (38.7-80.0); PLATELET COUNT 173 x10e3/uL (140-360); RED BLOOD COUNT 3.53 x10e6/uL (4.3-5.7); RED CELL DISTRIBUTION WIDTH 13.4 % (11.7-14.4); WHITE BLOOD COUNT 6.78 x10e3/uL (4.8-10.8)
[2024-06-23 06:22] LABS: ANION GAP 10.5 mmol/L (8-16); CALCIUM 8.5 mg/dL (8.4-10.2); CREATININE, SERUM 0.79 mg/dL (0.72-1.25); POTASSIUM 3.5 mmol/L (3.5-5.1)
== END 2024-06-23 13:00 | disposition home or self-care (01) | DRG 713 ==
LOC: OR 09:12 → PACU V 15:19 → MED/SURG3 17:55
PROVIDERS: ADMIT Internal Medicine; ATTEND Internal Medicine
PROC: BT161ZZ Fluoroscopy of Right Ureter using Low Osmolar Contrast (ICD-10-PCS; 2024-06-19)
PROC: BT171ZZ Fluoroscopy of Left Ureter using Low Osmolar Contrast (ICD-10-PCS; 2024-06-19)
PROC: BT101ZZ Fluoroscopy of Bladder using Low Osmolar Contrast (ICD-10-PCS; 2024-06-19)
PROC: 0V508ZZ Destruction of Prostate, Via Natural or Artificial Opening Endoscopic (ICD-10-PCS; principal; 2024-06-19 14:37)
DX: N40.1 Benign prostatic hyperplasia with lower urinary tract symptoms (principal); D62 Acute posthemorrhagic anemia; E83.51 Hypocalcemia; R33.8 Other retention of urine; R31.0 Gross hematuria; N13.9 Obstructive and reflux uropathy, unspecified; I10 Essential (primary) hypertension; E78.00 Pure hypercholesterolemia, unspecified; M15.9 Polyosteoarthritis, unspecified; E87.6 Hypokalemia; F32.A Depression, unspecified; Z87.440 Personal history of urinary (tract) infections; E66.9 Obesity, unspecified; Z68.27 Body mass index [BMI] 27.0-27.9, adult
CPT/HCPCS: 36415; 74420; 80048; 83735; 85025; 93005; 94799; C1758; J1100; J1580; J2001; J2185; J2250; J2405; J2543; J7030; J7050